=== PATIENT | female | born 1970 | race Caucasian/White ===

== ENCOUNTER 2016-08-12 16:45 | Emergency (ER) | payer OTHER ==
[~2016-08-12] VITALS: Ht 154.9 cm; Wt 68.0 kg
[2016-08-12 17:10] VITALS: BP 139/75; PULSE 78; RESP 16; TEMP 98.1; O2SAT 96
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
[2016-08-12] MEDS ORDERED: LISI10TA3 PO (17:23)
[2016-08-12] MEDS ORDERED: NALT50TA3 PO (17:23)
[2016-08-12] MEDS ORDERED: GABA300C5 PO (17:23)
[2016-08-12] MEDS ORDERED: HYDR50CA PO (17:23)
[2016-08-12] MEDS ORDERED: LEVO50TA4 PO (17:23)
[2016-08-12] MEDS ORDERED: ERGO2000 PO (17:23)
[2016-08-12] MEDS ORDERED: METO50TA11 PO (17:23)
[2016-08-12] MEDS ORDERED: OLAN5TAB PO ×2 (17:23)
[2016-08-12] MEDS ORDERED: BUSP10TA PO (17:23)
[2016-08-12 17:39] LABS: AUTOMATED NEUTROPHIL # 4.4 TH/MM3 (1.8-7.7); BASOPHIL # 0.1 TH/MM3 (0-0.2); BASOPHIL % 1.2 % (0.0-2.0); EOSINOPHIL # 0.2 TH/MM3 (0-0.4); EOSINOPHIL % 2.4 % (0.0-4.0); HEMATOCRIT 34.4 % (35.0-46.0); LYMPH % 31.2 % (9.0-44.0); LYMPHOCYTE # 2.3 TH/MM3 (1.0-4.8); MEAN CELL VOLUME 74.1 FL (80.0-100.0); MEAN CORPUSCULAR HEMOGLOBIN 23.8 PG (27.0-34.0); MEAN CORPUSCULAR HGB CONC 32.1 % (32.0-36.0); NEUT % 60.2 % (16.0-70.0); PLATELET COUNT 289 TH/MM3 (150-450); RED BLOOD COUNT 4.64 MIL/MM3 (4.00-5.30); RED CELL DISTRIBUTION WIDTH 22.4 % (11.6-17.2); WHITE BLOOD COUNT 7.3 TH/MM3 (4.0-11.0)
[2016-08-12 17:44] LABS: HEMO FLAGS AUTO DIFF
[2016-08-12 17:58] LABS: BICARBONATE 26.9 MEQ/L (21.0-32.0); POTASSIUM 3.6 MEQ/L (3.5-5.1)
[2016-08-12] MEDS ORDERED: IBUPROFEN 800 MG TAB PO ONE (18:00)
[2016-08-12] MEDS ORDERED: HALOPERIDOL LACTATE 5 MG/ML AMP IM ONE (18:15)
[2016-08-12] MEDS ORDERED: LORazepam 2 MG/ML VIAL IM ONE (18:15)
[2016-08-12 18:37] LABS: OVALOCYTES 1+ (NORMAL); PLATELET ESTIMATE SMEAR NORMAL (NORMAL); PLATELET MORPHOLOGY NORMAL (NORMAL)
[2016-08-12 18:38] LABS: SCAN/DIFF AUTO DIFF CONFIRMED
[2016-08-12 22:40] VITALS: BP 116/70; PULSE 92; RESP 18; O2SAT 95
[2016-08-12 23:14] LABS: AMPHETAMINE, URINE NEG (NEG); BARBITURATES, URINE NEG (NEG); COCAINE, URINE NEG (NEG)
[2016-08-12 23:26] LABS: BACTERIA, URINE RARE /hpf; BLOOD, URINE NEG (NEG); COMMENT (UR) CULT NOT INDICATED; CULTURE IF INDICATED CULT NOT INDICATED; GLUCOSE,URINE NEG (NEG); KETONE, URINE NEG (NEG); MUCUS URINE FEW /lpf (OCC); NITRITE,URINE NEG (NEG); PH, URINE 5.5 (5.0-8.5); SQUAMOUS EPITHELIAL CELL URINE 5 /hpf (0-5); URIC ACID CRYSTALS, URINE OCC /hpf; URINE COLOR YELLOW (YELLW/STRAW)
[2016-08-13 02:12] VITALS: BP 128/71; PULSE 79; RESP 18; O2SAT 97
[2016-08-13 06:42] VITALS: BP 113/66; PULSE 75; RESP 18; O2SAT 99
--- NOTE | 2016-08-13 08:02 | PD ---
History of Present Illness Chief Complaint: Psychiatric Symptoms Time Seen by Provider: 07:30 Travel History International Travel<30 Days: No Contact w/Intl Traveler<30days: No Known affected area: No Legal Status Legal Status: Coats Act Coats Act Signed By: Macey Griffith History of Present Illness: History of Present Illness 45-year-old female with history of alcohol dependence, anxiety and depression presents to the emergency department under Coats act initiated by MAHAD for psychiatric evaluation after she reported having taken unknown amount o f medication as well as superficially cutting her writs. She reports that she started to drink alcohol because she was frustrated over recent events including having received a second DUI, being unemployed, having lost her apartment as well as not having communication with her son due to her drinking.Presents to ED with BAL of 192. Upon arrival to ED she was agitated and required ETO . Patient was monitored in J pod. She slept. She did not present any behavioral concerns while in J pod. This morning she is clinically sober. Her speech is clear, logical and goal directed. She is calm and cooperative. She is remorseful regarding her actions including her continued drinking. States " I started to drink and I became frustrated. I was not trying to kill myself I was just frustrated". I need to put this behind me". She denies any suicidal ideation, intent or plan Patient has no hx of previous suicide attempts. There is no psychosis and no isael. Mood is euthymic. She denies that she took extra medication as she has not picked up her medication at the pharmacy. EMR is reviewed. No previous contact with [facility] psychiatry department. PFSH Past Medical History Anxiety: Yes Depression: Yes Hypertension: Yes ?: Not LMP: 08/09/16 Tubal Ligation: Yes Psychiatric History Psychiatric History Hx Psychiatric Treatment: HX OF DEPRESSION AND ANXIETY Has been txd at [facility] History of Inpatient Treatment: Yes (Last admission in 2015 at [facility]. ) Guns or firearms in home: No Social History female, living with a friend. Currently unemployed. Has 2 adult children. Hx Alcohol Use: Yes (Began drinking approximately 20 years ago. ) Hx Tobacco Use: Yes Hx Substance Use: No Substance Use Type: Alcohol, Nicotine/Cigarettes Hx of Substance Use Treatment: Yes (Has had several admissions to detox as well as substance abuse treatment facilities. Has had extended periods of sobriety. ) Family Psychiatric History Negative Allergies-Medications (Allergen,Severity, Reaction): Coded Allergies: No Known Allergies (Unverified , 08/12/16) Reported Meds & Prescriptions Reported Meds & Active Scripts Active Reported Levothyroxine (Levothyroxine Sodium) 50 Mcg Tab 50 Mcg PO DAILY Hydroxyzine Pamoate 50 Mg Cap 50 Mg PO TID PRN Naltrexone (Naltrexone HCl) 50 Mg Tab 50 Mg PO DAILY Buspirone (Buspirone HCl) 10 Mg Tab 10 Mg PO TID Vitamin D2 (Ergocalciferol) 2,000 Unit Tab 50,000 Units PO WEEKLY Gabapentin 300 Mg Cap 600 Mg PO BID Olanzapine 5 Mg Tab 5 Mg PO HS Olanzapine 5 Mg Tab 5 Mg PO BID Lisinopril 10 Mg Tab 10 Mg PO DAILY Metoprolol Succinate ER 24 HR (Metoprolol Succinate) 50 Mg Tab 50 Mg PO DAILY Review of Systems Except as stated in HPI: all other systems reviewed are Neg Psychiatric: COMPLAINS OF: Anxiety, Depression Exam Alert: Yes [place]: Person (ox4) Mood: Calm Affect: Euthymic Speech: Clear, Logical Eye Contact: Normal Memory Intact: Comment (no impairmetn) Hallucinations: Other (Negative) Delusions: No Suicidal: Ideation (denies any) Homicidal: Ideation (denies any) Insight/Judgement Fair. Not impired. [facility] Medical Decision Making Medical Record Reviewed: Yes Assessment/Plan 45 year old female that in context of alcohol intoxication superficially cut her wrists. She denies that this was a suicidal attempt but as a result of her intoxication. At this time the patient is requesting discharge. She does not meet criteria for involuntary placement. She is future oriented and has a plan at this time to move into [facility] which is a sober living house, attend AA , start looking for work and begin making amends with her adult children. She will follow up with [facility] for psychiatric follow up. Lift BA Discharge to home. Orders Complete Blood Count With Diff (08/12/16 17:11) Basic Metabolic Panel (Bmp) (08/12/16 17:11) Urinalysis - C+S If Indicated (08/12/16 17:11) Ed Urine Pregnancytest Poc (08/12/16 17:11) Psych Screen (08/12/16 17:11) Drug Screen, Random Urine (08/12/16 17:11) Alcohol (Ethanol) (08/12/16 17:11) Ibuprofen (Motrin) (08/12/16 18:00) Haloperidol Inj (Haldol Inj) (08/12/16 18:15) Lorazepam Inj (Ativan Inj) (08/12/16 18:15) Restraints Violent (08/12/16 18:17) Diet Regular Basic (08/13/16 Breakfast) Results Vital Signs Date Time Temp Pulse Resp B/P Pulse Ox O2 Delivery O2 Flow Rate FiO2 08/13/16 06:42 75 18 113/66 99 Room Air 08/13/16 02:12 79 18 128/71 97 Room Air 08/12/16 22:40 92 18 116/70 95 Room Air 08/12/16 17:10 98.1 78 16 139/75 96 Laboratory Tests Test 08/12/16 08/12/16 17:15 22:10 White Blood Count 7.3 Red Blood Count 4.64 Hemoglobin 11.0 Hematocrit 34.4 Mean Corpuscular Volume 74.1 Mean Corpuscular Hemoglobin 23.8 Mean Corpuscular Hemoglobin 32.1 Concent Red Cell Distribution Width 22.4 Platelet Count 289 Mean Platelet Volume 7.6 Neutrophils (%) (Auto) 60.2 Lymphocytes (%) (Auto) 31.2 Monocytes (%) (Auto) 5.0 Eosinophils (%) (Auto) 2.4 Basophils (%) (Auto) 1.2 Neutrophils # (Auto) 4.4 Lymphocytes # (Auto) 2.3 Monocytes # (Auto) 0.4 Eosinophils # (Auto) 0.2 Basophils # (Auto) 0.1 CBC Comment AUTO DIFF Differential Comment AUTO DIFF CONFIRMED Platelet Estimate NORMAL Platelet Morphology Comment NORMAL Ovalocytes 1+ Sodium Level 142 Potassium Level 3.6 Chloride Level 107 Carbon Dioxide Level 26.9 Anion Gap 8 Blood Urea Nitrogen 14 Creatinine 0.93 Estimat Glomerular Filtration 65 Rate Random Glucose 85 Calcium Level 8.4 Ethyl Alcohol Level 192 Urine Color YELLOW Urine Turbidity HAZY Urine pH 5.5 Urine Specific Moss 1.014 Urine Protein NEG Urine Glucose (UA) NEG Urine Ketones NEG Urine Occult Blood NEG Urine Nitrite NEG Urine Bilirubin NEG Urine Urobilinogen LESS THAN 2.0 Urine Leukocyte Esterase NEG Urine RBC 2 Urine WBC 4 Urine Squamous Epithelial 5 Cells Urine Uric Acid Crystals OCC Urine Bacteria RARE Urine Mucus FEW Microscopic Urinalysis Comment CULT NOT INDICATED Urine Opiates Screen NEG Urine Barbiturates Screen NEG Urine Amphetamines Screen NEG Urine Benzodiazepines Screen POS Urine Cocaine Screen NEG Urine Cannabinoids Screen NEG Diagnosis Primary Impression: Laceration of wrist Additional Impressions: Laceration of wrist, right Alcohol dependence with acute alcoholic intoxication Ruled Out: Suicidal intent, Psychosis Psychiatrically Cleared: Yes Med/ Other Pt Specific Info: No Change to Meds Disposition: 01 DISCHARGE HOME Condition: Stable Problem Qualifiers Primary Impression: Laceration of wrist Qualified Code: S61.512A - Laceration of wrist, left, initial encounter Additional Impressions: Laceration of wrist, right Qualified Code: S61.511A - Laceration of wrist, right, initial encounter Alcohol dependence with acute alcoholic intoxication Qualified Code: F10.220 - Alcohol dependence with acute alcoholic intoxication , uncomplicated Tamia Kelly Aug 13, 2016 08:01
== END 2016-08-13 08:43 | disposition home or self-care (01) ==
LOC: NEPE 16:45 → NEPJ 08-13 08:43
DX: S61.511A Laceration without foreign body of right wrist, initial encounter (principal); F29 Unspecified psychosis not due to a substance or known physiological condition; F10.229 Alcohol dependence with intoxication, unspecified; I10 Essential (primary) hypertension; X78.9XXA Intentional self-harm by unspecified sharp object, initial encounter; Z72.0 Tobacco use
CPT/HCPCS: 80048; 80307; 81001; 84703; 85025; 96372; 99284; J1630; J2060

== ENCOUNTER 2017-05-31 09:52 | Emergency (ER) | payer SELFPAY ==
[~2017-05-31] VITALS: Ht 154.9 cm; Wt 62.0 kg
[~2017-05-31 09:52] MED LIST: BUSP10TA PO; ERGO2000 PO; GABA300C5 PO; HYDR50CA PO; LEVO50TA4 PO; LISI10TA3 PO; METO1TAB9 PO; NALT50TA3 PO; OLAN5TAB PO
[2017-05-31 09:53] VITALS: BP 151/97; PULSE 90; RESP 17; TEMP 98.5; O2SAT 98
[2017-05-31] MEDS ORDERED: chlordiazePOXIDE 25 MG CAP PO STA (10:09)
--- NOTE | 2017-05-31 10:13 | PD ---
HPI Chief Complaint: Alcohol/Drug Intoxication Time Seen by Provider: 10:02 Travel History International Travel<30 days: No Contact w/Intl Traveler<30days: No Traveled to known affect area: No History of Present Illness HPI This Is a 46-year-old female who presents for evaluation of alcohol withdrawal. The patient reports that she has a long-standing history of alcoholism. On an average day she drinks greater than 2 bottles of wine. She decided to quit drinking last night "cold turkey" and today she is experiencing tremors, nausea. She reports that the police dropped her off here. Denies any concurrent illicit drug use. Denies any concurrent illness. Denies any suicidal or homicidal ideation. She has no other complaints at this time. [facility] Past Medical History Anxiety: Yes Depression: Yes Hypertension: Yes Tubal Ligation: Yes Social History Alcohol Use: Yes (Began drinking approximately 20 years ago. ) Tobacco Use: Yes Substance Use: No Allergies-Medications (Allergen,Severity, Reaction): Coded Allergies: No Known Allergies (Unverified Adverse Reaction, Unknown, 05/31/17) Reported Meds & Prescriptions Reported Meds & Active Scripts Active Zofran (Ondansetron HCl) 4 Mg Tab 4 Mg PO Q6HR PRN Chlordiazepoxide HCl 25 Mg Capsule 1 Tab PO QID Reported Levothyroxine (Levothyroxine Sodium) 50 Mcg Tab 50 Mcg PO DAILY Hydroxyzine Pamoate 50 Mg Cap 50 Mg PO TID PRN Naltrexone (Naltrexone HCl) 50 Mg Tab 50 Mg PO DAILY Buspirone (Buspirone HCl) 10 Mg Tab 10 Mg PO TID Vitamin D2 (Ergocalciferol) 2,000 Unit Tab 50,000 Units PO WEEKLY Gabapentin 300 Mg Cap 600 Mg PO BID Olanzapine 5 Mg Tab 5 Mg PO HS Olanzapine 5 Mg Tab 5 Mg PO BID Lisinopril 10 Mg Tab 10 Mg PO DAILY Metoprolol Succinate ER 24 HR (Metoprolol Succinate) 50 Mg Tab 50 Mg PO DAILY Review of Systems Except as stated in HPI: all other systems reviewed are Neg Physical Exam Narrative GENERAL: Well-developed well-nourished female who is anxious. SKIN: Warm and dry. HEAD: Atraumatic. Normocephalic. EYES: Pupils equal and round. No scleral icterus. No injection or drainage. ENT: No nasal bleeding or discharge. Mucous membranes pink and moist. NECK: Trachea midline. No JVD. CARDIOVASCULAR: Regular rate and rhythm. No murmur appreciated. RESPIRATORY: No accessory muscle use. Clear to auscultation. Breath sounds equal bilaterally. GASTROINTESTINAL: Abdomen soft, non-tender, nondistended. Hepatic and splenic margins not palpable. MUSCULOSKELETAL: No obvious deformities. No clubbing. No cyanosis. No edema. NEUROLOGICAL: Awake and alert. No obvious cranial nerve deficits. Motor grossly within normal limits. Mild resting tremor noted. PSYCHIATRIC: Appropriate mood and affect; insight and judgment normal. Data Data Last Documented VS Vital Signs Date Time Temp Pulse Resp B/P (MAP) Pulse Ox O2 Delivery O2 Flow Rate FiO2 05/31/17 09:53 98.5 90 17 151/97 (115) 98 Orders Orders Blood Glucose (05/31/17 10:09) Thiamine Inj (Thiamine Inj) (05/31/17 10:15) Folic Acid (Folate) (05/31/17 10:15) Lorazepam Inj (Ativan Inj) (05/31/17 10:15) Chlordiazepoxide (Librium) (05/31/17 10:09) Ondansetron Inj (Zofran Inj) (05/31/17 10:15) Ed Discharge Order (05/31/17 10:46) [facility] Medical Decision Making Medical Screen Exam Complete: Yes Emergency Medical Condition: Yes Medical Record Reviewed: Yes Differential Diagnosis Alcoholism, alcohol withdrawal, electrolyte abnormality Narrative Course 46-year-old female who reports a long-standing history of alcoholism presents requesting help with alcohol detoxification. Her last drink was yesterday evening. The symptoms that she is experiencing today are tremors, nausea. She has no associated psychiatric or medical illness today. The patient will be given IV thiamine, oral, Zofran, Librium. Discussed with the nurse in J pod called [facility] and unfortunately they have no beds available for detoxification today however they do have a outpatient substance abuse program in which walkins are excepted Wednesday through Wednesday's from 9 AM to 3 PM. The patient will be given information on how to contact them for tomorrow morning. The patient be given prescriptions today for Librium and Zofran. She is stable for discharge. Diagnosis Primary Impression: Alcohol withdrawal Additional Instructions: Medication as prescribed. As discussed, follow-up with [facility] tomorrow morning at [address] [place] [address] in [facility]. Phone # . Walk-in appointments are accepted Wednesday through Fridays 9 AM to 3 PM. Return for any emergent medical conditions. Scripts Ondansetron (Zofran) 4 Mg Tab 4 MG PO Q6HR Y for NAUSEA OR VOMITING, #12 TAB 0 Refills Prov: Comfort Christian MD 05/31/17 Chlordiazepoxide HCl (Chlordiazepoxide HCl) 25 Mg Capsule 1 TAB PO QID, #8 Prov: Comfort Christian MD 05/31/17 Sherman Lozada May 31, 2017 10:13
[2017-05-31] MEDS ORDERED: FOLIC ACID 1 MG TAB PO ONE (10:15)
[2017-05-31] MEDS ORDERED: LORazepam 2 MG/ML VIAL IV PUSH ONE (10:15)
[2017-05-31] MEDS ORDERED: ONDANSETRON HCL 4 MG/2 ML VIAL IV PUSH ONE (10:15)
[2017-05-31] MEDS ORDERED: THIAMINE INJ 100 MG in SODIUM CHLORIDE 0.9% INJ 100 ML IV ONE (10:15)
[2017-05-31 10:30] VITALS: BP 136/79; PULSE 86; RESP 18; O2SAT 97
[2017-05-31] MEDS ORDERED: CHLO25CA9 PO (10:34)
[2017-05-31] MEDS ORDERED: ZOFR4TAB PO (10:34)
== END 2017-05-31 11:41 | disposition home or self-care (01) ==
LOC: NEPD 09:52
DX: F10.239 Alcohol dependence with withdrawal, unspecified (principal); F41.8 Other specified anxiety disorders; I10 Essential (primary) hypertension; Z72.0 Tobacco use
CPT/HCPCS: 99284; J2060; J2405; J3411

== ENCOUNTER 2017-10-19 20:08 | Emergency (ER) | payer OTHER ==
[~2017-10-19 20:08] MED LIST changes: +CHLO25CA9 PO; +ZOFR4TAB PO
[2017-10-19 20:17] VITALS: BP 209/96; PULSE 66; RESP 16; TEMP 97.7; O2SAT 100
[2017-10-19] MEDS ORDERED: CELE40TA PO (20:17)
[2017-10-19] MEDS ORDERED: RESP: RACEPINEPHRINE 2.25% 0.5 ML NEB NEB ONE (20:30)
[2017-10-19] MEDS ORDERED: SODIUM CHLORIDE 0.9% FLUSH 10 ML FLUSH IV FLUSH PRN (20:30)
[2017-10-19] MEDS ORDERED: DEXAMETHASONE SOD PHOS 20 MG/5 ML VIAL IV PUSH ONE (20:30)
[2017-10-19] MEDS ORDERED: diphenhydrAMINE HCL 50 MG/ML VIAL IM ONE (20:30)
[2017-10-19 20:47] VITALS: BP 169/81; PULSE 69; RESP 20; O2SAT 100
[2017-10-19 20:58] LABS: AUTOMATED NEUTROPHIL # 3.1 TH/MM3 (1.8-7.7); BASOPHIL # 0.1 TH/MM3 (0-0.2); EOSINOPHIL # 0.2 TH/MM3 (0-0.4); EOSINOPHIL % 3.5 % (0.0-4.0); HEMATOCRIT 36.1 % (35.0-46.0); HEMOGLOBIN 11.4 GM/DL (11.6-15.3); LYMPH % 30.3 % (9.0-44.0); LYMPHOCYTE # 1.8 TH/MM3 (1.0-4.8); MEAN CELL VOLUME 74.1 FL (80.0-100.0); MEAN CORPUSCULAR HEMOGLOBIN 23.4 PG (27.0-34.0); MEAN CORPUSCULAR HGB CONC 31.6 % (32.0-36.0); MEAN PLATELET VOLUME 7.5 FL (7.0-11.0); MONO % 11.9 % (0.0-8.0); MONOCYTE # 0.7 TH/MM3 (0-0.9); NEUT % 53.3 % (16.0-70.0); PLATELET COUNT 357 TH/MM3 (150-450); RED BLOOD COUNT 4.87 MIL/MM3 (4.00-5.30); RED CELL DISTRIBUTION WIDTH 19.7 % (11.6-17.2); WHITE BLOOD COUNT 5.9 TH/MM3 (4.0-11.0)
[2017-10-19 21:14] LABS: BICARBONATE 26.3 MEQ/L (21.0-32.0); CALCIUM 9.1 MG/DL (8.5-10.1); CREATININE 0.69 MG/DL (0.50-1.00)
--- NOTE | 2017-10-19 21:27 | PD ---
HPI Chief Complaint: Allergic/Adverse Reaction Time Seen by Provider: 20:28 Travel History International Travel<30 days: No Contact w/Intl Traveler<30days: No Traveled to known affect area: No History of Present Illness HPI Patient 47-year-old female on lisinopril presents to the emergency department for evaluation of protruding tongue tongue swelling and lip swelling. Her son states that she should look swollen for the past few hours as well. No chest pain no shortness of breath no abdominal pain no nausea vomiting diarrhea constipation difficulty swallowing change in voice. Symptoms moderate, upper and lower lips, duration as above, associated signs symptoms as above. PFSH Past Medical History Anxiety: Yes Depression: Yes Cardiovascular Problems: Yes (HTN) Hypertension: Yes Tetanus Vaccination: Never Vaccinated Influenza Vaccination: No ?: Not Tubal Ligation: Yes Social History Alcohol Use: Yes (Began drinking approximately 20 years ago. ) Tobacco Use: Yes Substance Use: No Allergies-Medications (Allergen,Severity, Reaction): Coded Allergies: lisinopril (Verified Allergy, Severe, angioedema, 10/19/17) Reported Meds & Prescriptions Reported Meds & Active Scripts Active Prednisone 20 Mg Tab 60 Mg PO DAILY 5 Days Reported Celexa (Citalopram Hydrobromide) 40 Mg Tab 60 Mg PO DAILY Hydroxyzine Pamoate 50 Mg Cap 50 Mg PO TID PRN Gabapentin 300 Mg Cap 600 Mg PO BID Lisinopril 10 Mg Tab 10 Mg PO DAILY Metoprolol Succinate ER 24 HR (Metoprolol Succinate) 50 Mg Tab 50 Mg PO DAILY Review of Systems Except as stated in HPI: all other systems reviewed are Neg Physical Exam Narrative GENERAL: Well-developed well-nourished, no obvious distress peer SKIN: Focused skin assessment warm/dry. No rash seen on her person. HEAD: Atraumatic. Normocephalic. EYES: Pupils equal and round. No scleral icterus. No injection or drainage. ENT: No nasal bleeding or discharge. Mucous membranes pink and moist. There is minimal swelling of the bilateral upper and lower lips, minimal tongue protrusion and swelling. No erythema. Her posterior oropharynx is widely patent and there is no uvular or soft palate swelling. She is not drooling, swallows easily. NECK: Trachea midline. No JVD. CARDIOVASCULAR: Regular rate and rhythm. No murmur appreciated. RESPIRATORY: No accessory muscle use. Clear to auscultation. Breath sounds equal bilaterally. GASTROINTESTINAL: Abdomen soft, non-tender, nondistended. Hepatic and splenic margins not palpable. MUSCULOSKELETAL: No obvious deformities. No clubbing. No cyanosis. No edema. NEUROLOGICAL: Awake and alert. No obvious cranial nerve deficits. Motor grossly within normal limits. Normal speech. PSYCHIATRIC: Appropriate mood and affect; insight and judgment normal. Data Data Last Documented VS Vital Signs Date Time Temp Pulse Resp B/P (MAP) Pulse Ox O2 Delivery O2 Flow Rate FiO2 10/19/17 23:05 10/19/17 20:50 20 Room Air 10/19/17 20:47 69 100 10/19/17 20:17 97.7 Orders Orders Basic Metabolic Panel (Bmp) (10/19/17 20:28) Complete Blood Count With Diff (10/19/17 20:28) Ecg Monitoring (10/19/17 20:28) Iv Access Insert/Monitor (10/19/17 20:28) Oximetry (10/19/17 20:28) Diphenhydramine Inj (Benadryl Inj) (10/19/17 20:30) Sodium Chloride 0.9% Flush (Ns Flush) (10/19/17 20:30) Dexamethasone Inj (Decadron Inj) (10/19/17 20:30) Racemic Epinephrine 2.25% Neb (Racepinep (10/19/17 20:30) Acetamin-Hydrocod 325-5 Mg ([place] 5-325 (10/19/17 21:45) Ed Discharge Order (10/19/17 22:50) Labs Laboratory Tests Test 10/19/17 20:33 White Blood Count 5.9 TH/MM3 Red Blood Count 4.87 MIL/MM3 Hemoglobin 11.4 GM/DL Hematocrit 36.1 % Mean Corpuscular Volume 74.1 FL Mean Corpuscular Hemoglobin 23.4 PG Mean Corpuscular Hemoglobin Concent 31.6 % Red Cell Distribution Width 19.7 % Platelet Count 357 TH/MM3 Mean Platelet Volume 7.5 FL Neutrophils (%) (Auto) 53.3 % Lymphocytes (%) (Auto) 30.3 % Monocytes (%) (Auto) 11.9 % Eosinophils (%) (Auto) 3.5 % Basophils (%) (Auto) 1.0 % Neutrophils # (Auto) 3.1 TH/MM3 Lymphocytes # (Auto) 1.8 TH/MM3 Monocytes # (Auto) 0.7 TH/MM3 Eosinophils # (Auto) 0.2 TH/MM3 Basophils # (Auto) 0.1 TH/MM3 CBC Comment DIFF FINAL Differential Comment Blood Urea Nitrogen 5 MG/DL Creatinine 0.69 MG/DL Random Glucose 87 MG/DL Calcium Level 9.1 MG/DL Sodium Level 137 MEQ/L Potassium Level 3.7 MEQ/L Chloride Level 101 MEQ/L Carbon Dioxide Level 26.3 MEQ/L Anion Gap 10 MEQ/L Estimat Glomerular Filtration Rate 91 ML/MIN MDM Medical Decision Making Medical Screen Exam Complete: Yes Emergency Medical Condition: Yes Differential Diagnosis Angioedema, allergic reaction, ANGY inhibitor angioedema. Narrative Course Patient room to the emergency department, of her upper and lower lips but the tongue is protruding.There really is minimal swelling I suspect that there may be some psychogenic component. Nonetheless the patient was given 10 mg of Decadron, racemic epinephrine by treatment and Benadryl. She had complete resolution of her symptoms within the next 30 minutes. She was observed in the emergency department for a total of 3 hours, she is remained medically hemodynamically stable. Will discharge on empiric prednisone, instructions not to take her ANGY inhibitor anymore and follow-up with her primary care physician. Diagnosis Primary Impression: Angio-edema Qualified Codes: T78.3XXA - Angioneurotic edema, initial encounter Med/Other Pt SpecificInfo: Prescription(s) given Scripts Prednisone (Prednisone) 20 Mg Tab 60 MG PO DAILY for 5 Days, #15 TAB 0 Refills Prov: Trevon Clemente MD 10/19/17 Disposition: 01 DISCHARGE HOME Condition: Stable Trevon Clemente MD Oct 19, 2017 21:27
[2017-10-19] MEDS ORDERED: ACETAMINOPHEN/HYDROcodone 325 MG/5 MG TAB PO ONE (21:45)
[2017-10-19] MEDS ORDERED: PRED20 PO (22:50)
== END 2017-10-19 23:14 | disposition home or self-care (01) ==
LOC: NEPE 20:08
DX: T78.3XXA Angioneurotic edema, initial encounter (principal); F41.9 Anxiety disorder, unspecified; F32.9 Major depressive disorder, single episode, unspecified; I10 Essential (primary) hypertension; Z72.0 Tobacco use
CPT/HCPCS: 80048; 85025; 94664; 96372; 96374; 99284; J1100; J1200